=== PATIENT | female | born 1940 | race Caucasian/White ===

== ENCOUNTER 2016-10-09 14:40 | Emergency (ER) | payer OTHER ==
[~2016-10-09] VITALS: Ht 157.5 cm; Wt 59.8 kg
[2016-10-09 14:44] VITALS: TEMP 36.8; Ht 157.5 cm; Wt 59.8 kg
[2016-10-09] MEDS ORDERED: SODIUM CHLORIDE 0.9% 1000ML 1,000 ML IV STA (16:25)
[2016-10-09] MEDS ORDERED: SODIUM CHLORIDE 0.9% 1000ML 1,000 ML IV ONE (16:25)
[2016-10-09] MEDS ORDERED: OMEG10007 PO (16:54)
[2016-10-09] MEDS ORDERED: PRED1SUS3 OPL (16:54)
[2016-10-09] MEDS ORDERED: SIMV20TA2 PO (16:54)
[2016-10-09] MEDS ORDERED: KETO0.5S22 OPL (16:54)
[2016-10-09] MEDS ORDERED: DSY/150 PO (16:54)
[2016-10-09] MEDS ORDERED: ARC10 PO (16:54)
[2016-10-09] MEDS ORDERED: KETO0.5S22 OPR (16:54)
[2016-10-09] MEDS ORDERED: VENL150T33 PO (16:54)
[2016-10-09] MEDS ORDERED: PRED1SUS3 OPR (16:54)
--- NOTE | 2016-10-09 17:00 | EMERGENCY ROOM VISIT NOTE ---
History Report prepared by Carol: Nhung Oh Under the Supervision of: Dr. Augustin Nelson M.D. First contact with patient: 16:14 Chief Complaint: CONFUSION Stated Complaint: MENTAL HEALTH CHANGES, CONFUSION, SHAKING, PACING Nursing Triage Summary: Pt daughter states patient "shaking, can't focus, pacing, lip burning, crying and has mental status changes and self care is declining." "on and off" worsening since about 2 weeks ago. Dementia Cataract Surgery in August. Daughter says she's not eating and she has diarrhea. History of Present Illness The patient is a 76 year old female who presents to the Emergency Room with complaints of worsening confusion starting 2 weeks ago. The patient was diagnosed with dementia 2-3 years ago. She is here with her daughter who thinks that the patient's mental status has worsened in the past weeks. The patient's neighbor who helps take care of her noticed today that she was behaving abnormally today. She was shaking, pacing, and crying in her home. She thinks that her self care has declined recently. Her anxiety seems to be worse than normal. She has lost 10 lbs in the past 5 weeks. She is unsure if the patient is forgetting to eat or just not eating. She reports diarrhea, headache, sore throat, fatigue and dysuria. She has been picking at her skin more than normal. She denies any vomiting, chest pain, cough, SOB, fever, numbness, weakness, or abdominal pain. She denies any falls. She does not drink. She has no new medications. She is not on blood thinners. She had cataract surgery 1 month ago. She had a follow up appointment yesterday which was normal. She is on prednisone eyedrops. Source of History: patient, family Onset: 2 weeks ago Position: other (global) Quality: other (confusion) Timing: worsening Associated Symptoms: + headache, + sorethroat, + diarrhea, + urinary symptoms, + fatigue, No fevers, No cough, No chest pain, No SOB, No vomiting, No abdominal pain, No weakness, No numbness Note: Pt has been picking skin, anxious. Review of Systems See HPI for pertinent positives & negatives. A total of 10 systems reviewed and were otherwise negative. Past Medical & Surgical Medical Problems: (1) Dementia Old medical records were attempted to be reviewed but there are no old records at this hospital. Nurse's notes were reviewed and I agree with. History of dementia for several years. No history of diabetes or cardiac disease or CVA Family History Noncontributory secondary to age. Social History Smoking Status: Former Smoker Marital Status: Occupation Status: retired Current/Historical Medications Scheduled Donepezil HCl (Donepezil HCl), 10 MG PO HS Fish Oil ([place]-3), 1 CAP PO DAILY Ketorolac Tromethamine (Ophth) (Ketorolac Tromethamine), 1 DROPS OPL TID Ketorolac Tromethamine (Ophth) (Ketorolac Tromethamine), 1 DROPS OPR BID Prednisolone Acetate (Ophth) (Pred Forte 1% Oph), 1 DROPS OPL TID Prednisolone Acetate (Ophth) (Pred Forte 1% Oph), 1 DROPS OPR BID Simvastatin (Zocor), 20 MG PO QPM Trazodone HCl (Trazodone HCl), 150 MG PO HS Venlafaxine Hcl (Venlafaxine Hcl Er), 150 MG PO DAILY Allergies Coded Allergies: No Known Allergies (Unverified , 10/09/16) Physical Exam Vital Signs Date Time Temp Pulse Resp B/P (MAP) Pulse Ox O2 Delivery O2 Flow Rate FiO2 10/09/16 19:50 76 18 161/84 94 10/09/16 18:40 82 16 165/88 95 Room Air 10/09/16 16:54 67 16 188/85 95 Room Air 10/09/16 14:44 36.8 90 18 206/82 94 Room Air Physical Exam General: Non ill appearing older female in no acute distress, answers most questions appropriately. Breathing comfortably on room air. Normal speech. GCS of 14. Alert to year, person, and place, but not full date. HEENT: Normal cephalic atraumatic. Pupils are equal round and reactive to light. Extraocular movements are intact. Oropharynx is pink with moist mucous membranes. No swelling of the mouth lips or tongue. Neck: Supple with a midline trachea. No meningeal signs or stiffness, no JVD or bruits. No Stridor. Chest: Clear to auscultation bilaterally. No wheezes or rhonchi. No increased work of breathing. Heart: regular rate and rhythm. Abdomen: Soft nontender, nondistended without rebound guarding or rigidity. Extremities: No cyanosis clubbing or edema. No calf tenderness or assymetry Spine/Back. Non tender to palpation. No CVA tenderness Skin: Multiple areas where she has been picking skin to the bilateral face and upper back. Neurologic exam: Cranial nerves two through 12 are intact. Motor and sensation are intact and symmetrical throughout. No tremor. Medical Decision & Procedures ER Provider Diagnostic Interpretation: X-ray results as stated below per interpretation by me and the radiologist. Radiology results as stated below per my review and radiologist interpretation: CHEST ONE VIEW PORTABLE HISTORY: Atypical CHEST PAIN COMPARISON: None. FINDINGS: The lungs are clear. Cardiac silhouette is normal in size. No pleural effusions. No pneumothorax. Cholecystectomy. IMPRESSION: No acute process. Electronically signed by: Husam Gonzalez M.D. 10/09/2016 5:21 PM Dictated Date/Time: 10/09/2016 5:[address]AST CT DOSE: 537.48 mGy.cm HISTORY: Altered mental status. TECHNIQUE: Multiaxial CT images of the head were performed without the use of intravenous contrast. Automated exposure control was utilized for this study. A dose lowering technique was utilized adhering to the principles of ALARA. Comparison: None. Findings: The paranasal sinuses and mastoid air cells are clear. The calvarium and skull base are intact. There is no mass, hematoma, midline shift, acute infarct. White matter hypodensity is nonspecific but suggestive of microvascular ischemic change. The ventricles and sulci are within normal limits. Impression: Presumed mild microvascular ischemic change. No acute intracranial abnormality. Electronically signed by: Husam Gonzalez M.D. 10/09/2016 5:17 PM Dictated Date/Time: 10/09/2016 5:11 PM Laboratory Results 10/09/16 16:38 Red Blood Count 4.76, Mean Corpuscular Volume 93.5, Mean Corpuscular Hemoglobin 30.5, Mean Corpuscular Hemoglobin Concent 32.6, Mean Platelet Volume 12.6, Neutrophils (%) (Auto) 69.5, Lymphocytes (%) (Auto) 19.8, Monocytes (%) (Auto) 8.6, Eosinophils (%) (Auto) 1.3, Basophils (%) (Auto) 0.7, Neutrophils # (Auto) 5.78, Lymphocytes # (Auto) 1.65, Monocytes # (Auto) 0.72, Eosinophils # (Auto) 0.11, Basophils # (Auto) 0.06 10/09/16 16:38 Test 10/09/16 16:15 10/09/16 16:38 10/09/16 16:49 Urine Color YELLOW Urine Appearance CLEAR (CLEAR) Urine pH 7.5 (4.5-7.5) Urine Specific [place] 1.013 (1.000-1.030) Urine Protein NEG (NEG) Urine Glucose (UA) NEG (NEG) Urine Ketones TRACE (NEG) Urine Occult Blood NEG (NEG) Urine Nitrite NEG (NEG) Urine Bilirubin NEG (NEG) Urine Urobilinogen NEG (NEG) Urine Leukocyte Esterase NEG (NEG) White Blood Count 8.33 K/uL (4.8-10.8) Red Blood Count 4.76 M/uL (4.2-5.4) Hemoglobin 14.5 g/dL (12.0-16.0) Hematocrit 44.5 % (37-47) Mean Corpuscular Volume 93.5 fL (80-100) Mean Corpuscular Hemoglobin 30.5 pg (25-34) Mean Corpuscular Hemoglobin Concent 32.6 g/dl (32-36) Platelet Count 188 K/uL (130-400) Mean Platelet Volume 12.6 fL (7.4-10.4) Neutrophils (%) (Auto) 69.5 % Lymphocytes (%) (Auto) 19.8 % Monocytes (%) (Auto) 8.6 % Eosinophils (%) (Auto) 1.3 % Basophils (%) (Auto) 0.7 % Neutrophils # (Auto) 5.78 K/uL (1.4-6.5) Lymphocytes # (Auto) 1.65 K/uL (1.2-3.4) Monocytes # (Auto) 0.72 K/uL (0.11-0.59) Eosinophils # (Auto) 0.11 K/uL (0-0.5) Basophils # (Auto) 0.06 K/uL (0-0.2) RDW Standard Deviation 43.5 fL (36.4-46.3) RDW Coefficient of Variation 12.7 % (11.5-14.5) Immature Granulocyte % (Auto) 0.1 % Immature Granulocyte # (Auto) 0.01 K/uL (0.00-0.02) Anion Gap 7.0 mmol/L (3-11) Est Creatinine Clear Calc Drug Dose 53.9 ml/min Estimated GFR () 97.1 Estimated GFR (Non- 83.8 BUN/Creatinine Ratio 9.8 (10-20) Calcium Level 9.5 mg/dl (8.5-10.1) Total Bilirubin 0.5 mg/dl (0.2-1) Direct Bilirubin 0.1 mg/dl (0-0.2) Aspartate Amino Transf (AST/SGOT) 26 U/L (15-37) Alanine Aminotransferase (ALT/SGPT) 29 U/L (12-78) Alkaline Phosphatase 87 U/L (45-117) Total Protein 7.5 gm/dl (6.4-8.2) Albumin 3.8 gm/dl (3.4-5.0) Lipase 302 U/L (73-393) Thyroid Stimulating Hormone (TSH) 0.618 uIu/ml (0.300-4.500) Bedside Troponin I < 0.030 ng/ml (0-0.045) Laboratory studies as stated above per my review. Medications Administered Medications (Trade) Dose Ordered Sig/Mati Route Start Time Stop Time Status Last Admin Dose Admin Sodium Chloride 1,000 ml @ 999 mls/hr Q1H1M STAT IV 10/09/16 16:25 10/09/16 17:25 DC 10/09/16 16:25 999 MLS/HR ECG Indication: altered mental status Rate (beats per minute): 64 Rhythm: normal sinus Findings: no acute ischemic change, no ectopy Comparison ECG Date: no prior available ED Course 1617: Past medical records reviewed. The patient was evaluated in room C4, and a complete history and physical examination were performed. 1625: NSS 1000 ml @ 150 mls/hr IV, NSS 1000 ml @ 999 mls/hr IV. 1709: I reevaluated the patient. She is resting comfortably. She has just returned from [place]. 180: I reevaluated the patient. She is resting comfortably. We are waiting on her daughter to return. 1830: I reevaluated the patient. I had a long discussion with her family. The psych liaison will evaluate the patient. 0: The patient has been seen by the caser up. She will stay with her family over the weekend and follow up on Wednesday and set up home care. 194: Upon reevaluation, the patient is resting comfortably. I discussed the results and treatment plan with her family. They verbalized agreement of the treatment plan. The patient was discharged home. Medical Decision Differentials include, but are not limited to; UTI, intracranial process, dementia, electrolyte or metabolic abnormality, depression, cardiac disease. This patient has a history of dementia over several years according to the daughter, she's been getting worse over several weeks. She's been more forgetful and anxious. She's had no fever or fall or trauma. She's been very anxious at times as well. She looks well on exam. She has a [place] Coma Score 14 and does know the year but not the date otherwise. She is nontoxic and non-lethargic appearing. IV access was established. EKG was obtained. Urinalysis and urine culture was obtained. CAT scan of her head was obtained multiple blood testing was obtained. She was reassessed frequently. She has no white count or fever to suggest infection. Urinalysis does not suggest UTI with a culture pending. CAT scan of her head was unremarkable and shows no acute findings she does have a nonfocal neurologic exam and nothing to suggest a stroke based on her exam. EKG does not suggest acute coronary syndrome or arrhythmia. She has nothing to suggest acute thyroid abnormalities. I did also have Thong, our psychiatric caser up, talked to the family and he is going to arrange a home visit on Wednesday they will call her. The family against a with her over the weekend. They will return if: worsening of symptoms, any new problems or concerns. They're happy with the plan and she was discharged to home. Medication Reconcilliation Current Medication List: was personally reviewed by me Blood Pressure Screening Patient's blood pressure: Elevated blood pressure Blood pressure disposition: Elevated BP felt to be situational Impression Primary Impression: Altered mental status Additional Impression: Anxiety Scribe Attestation The scribe's documentation has been prepared under my direction and personally reviewed by me in its entirety. I confirm that the note above accurately reflects all work, treatment, procedures, and medical decision making performed by me. Departure Information Dispostion Home / Self-Care Referrals Cristina Diaz M.D. (PCP) Forms HOME CARE DOCUMENTATION FORM, IMPORTANT VISIT INFORMATION, WORK / SCHOOL INSTRUCTIONS Patient Instructions My [facility] [place] Additional Instructions Rest Drink plenty of fluids Stay with your family over the weekend Follow-up with [facility]-They will call you on Wednesday. Follow-up with your doctor on Wednesday for recheck Return to ER over the weekend if: Worsening of symptoms, fever or chills, any new problems or concerns. Problem Qualifiers
[2016-10-09 17:04] LABS: URINE APPEARANCE CLEAR (CLEAR); URINE BILIRUBIN NEG (NEG); URINE COLOR YELLOW; URINE NITRITE NEG (NEG); URINE PH 7.5 (4.5-7.5); URINE SPECIFIC GRAVITY 1.013 (1.000-1.030); UROBILINOGEN NEG (NEG)
--- NOTE | 2016-10-09 17:18 | DIAGNOSTIC IMAGING REPORT ---
HEAD CT NONCONTRAST CT DOSE: 537.48 mGy.cm HISTORY: Altered mental status. TECHNIQUE: Multiaxial CT images of the head were performed without the use of intravenous contrast. Automated exposure control was utilized for this study. A dose lowering technique was utilized adhering to the principles of ALARA. Comparison: None. Findings: The paranasal sinuses and mastoid air cells are clear. The calvarium and skull base are intact. There is no mass, hematoma, midline shift, acute infarct. White matter hypodensity is nonspecific but suggestive of microvascular ischemic change. The ventricles and sulci are within normal limits. Impression: Presumed mild microvascular ischemic change. No acute intracranial abnormality. Electronically signed by: Husam Gonzalez M.D. 10/09/2016 5:17 PM Dictated Date/Time: 10/09/2016 5:11 PM
[2016-10-09 17:22] LABS: BASO % 0.7 %; BASO ABS # 0.06 K/uL (0-0.2); COMPLETE YES; EOS % 1.3 %; HEMATOCRIT 44.5 % (37-47); IG% 0.1 %; LYMPH % 19.8 %; LYMPH ABS # 1.65 K/uL (1.2-3.4); MEAN CELL VOLUME 93.5 fL (80-100); MEAN CORPUSCULAR HEMOGLOBIN 30.5 pg (25-34); MEAN CORPUSCULAR HGB CONC 32.6 g/dl (32-36); MEAN PLATELET VOLUME 12.6 fL (7.4-10.4); MONO % 8.6 %; NEUT % 69.5 %; PLATELET COUNT 188 K/uL (130-400); RED BLOOD COUNT 4.76 M/uL (4.2-5.4); WHITE BLOOD COUNT 8.33 K/uL (4.8-10.8)
--- NOTE | 2016-10-09 17:22 | DIAGNOSTIC IMAGING REPORT ---
CHEST ONE VIEW PORTABLE HISTORY: Atypical CHEST PAIN COMPARISON: None. FINDINGS: The lungs are clear. Cardiac silhouette is normal in size. No pleural effusions. No pneumothorax. Cholecystectomy. IMPRESSION: No acute process. Electronically signed by: Husam Gonzalez M.D. 10/09/2016 5:21 PM Dictated Date/Time: 10/09/2016 5:20 PM
[2016-10-09 17:28] LABS: MANUAL MICROSCOPIC REQUIRED? NO; REVIEW REQ? NO
[2016-10-09 17:51] LABS: BUN/CREATININE RATIO 9.8 (10-20); CALCIUM 9.5 mg/dl (8.5-10.1); CREATININE 0.68 mg/dl (0.60-1.20); POTASSIUM 3.6 mmol/L (3.5-5.1)
[2016-10-09 18:02] LABS: THYROID STIMULATING HORMONE 0.618 uIu/ml (0.300-4.500)
[2016-10-09 19:50] VITALS: BP 161/84; PULSE 76; O2SAT 94
== END 2016-10-09 19:51 | disposition home or self-care (01) ==
LOC: C.EDB 14:42 → C.EDC 19:51
DX: R41.82 Altered mental status, unspecified (principal); F41.9 Anxiety disorder, unspecified; Z98.49 Cataract extraction status, unspecified eye; Z87.891 Personal history of nicotine dependence; Z79.899 Other long term (current) drug therapy

== ENCOUNTER → 2017-02-05 | Outpatient (CLI) | payer OTHER ==
[~2017-02-05] MED LIST: ARC10 PO; DSY/150 PO; KETO0.5S22 OPL; KETO0.5S22 OPR; OMEG10007 PO; PRED1SUS3 OPL; PRED1SUS3 OPR; SIMV20TA2 PO; VENL150T33 PO
[2017-02-05 12:46] LABS: BASO % 1.7 %; BASO ABS # 0.13 K/uL (0-0.2); COMPLETE YES; EOS % 5.6 %; HEMATOCRIT 44.8 % (37-47); IG% 0.1 %; MEAN CELL VOLUME 97.6 fL (80-100); MEAN CORPUSCULAR HEMOGLOBIN 32.5 pg (25-34); MEAN CORPUSCULAR HGB CONC 33.3 g/dl (32-36); MEAN PLATELET VOLUME 11.7 fL (7.4-10.4); NEUT % 60.6 %; PLATELET COUNT 197 K/uL (130-400); RED BLOOD COUNT 4.59 M/uL (4.2-5.4); WHITE BLOOD COUNT 7.51 K/uL (4.8-10.8)
[2017-02-05 13:15] LABS: ALT/SGPT 22 U/L (12-78); AST/SGOT 20 U/L (15-37); BLOOD UREA NITROGEN 12 mg/dl (7-18); BUN/CREATININE RATIO 16.2 (10-20); CALCIUM 9.4 mg/dl (8.5-10.1); CARBON DIOXIDE 30 mmol/L (21-32); CHLORIDE 102 mmol/L (98-107); CHOLESTEROL 174 mg/dl (0-200); CREATININE 0.75 mg/dl (0.60-1.20); GLUCOSE 105 mg/dl (70-99); POTASSIUM 4.1 mmol/L (3.5-5.1); SODIUM 137 mmol/L (136-145)
[2017-02-05 13:18] LABS: ALB/GLOB RATIO 1.1 (0.9-2); ALKALINE PHOSPHATASE 78 U/L (45-117); CHOLESTEROL/HDL RATIO 1.8; HDL CHOLESTEROL 98 mg/dl; LDL CHOLESTEROL CALCULATED 55 mg/dl; TRIGLYCERIDES 105 mg/dl (0-150); VERY LOW DENSITY LIPOPROT CALC 21 mg/dl
== END | disposition home or self-care (01) ==
LOC: C.LABMFLN 09:42
PROVIDERS: ATTEND Family Medicine
DX: F03.90 Unspecified dementia, unspecified severity, without behavioral disturbance, psychotic disturbance, mood disturbance, and anxiety (principal); E78.5 Hyperlipidemia, unspecified

== ENCOUNTER 2018-05-09 07:50 | Inpatient (IN) ==
--- NOTE | 2018-05-05 08:36 | Anesthesiology Consultation ---
Date of Service May 05, 2018 Assessment & Plan Chart Review Chart Review: Acceptable Risk for Surgery (Pending EKG that is being sent and need to be reviewed) and Patient NOT seen in Pre Admission Testing History Surgery Operation Date: 05/09/18 13:00 Proposed Procedures p Left Mastectomy with [place] Lymph Node Biopsy - Lito Porras MD, FACS Height/Weight Height: 1.57 m Weight: 60.781 kg Allergies Allergy/AdvReac Type Severity Reaction Status Date / Time Sulfa (Sulfonamide Allergy Unknown Unknown Verified 05/04/18 16:23 Antibiotics) Medications Home Medications Medication Instructions Recorded Confirmed Last Taken Ointment 1 dose TOPICAL UD PRN 05/04/18 05/04/18 Unknown chlorpromazine 10 mg PO QAM 05/04/18 05/04/18 05/04/18 memantine 10 mg PO BID 05/04/18 05/04/18 05/04/18 omega [id number]-fish oil [Fish Oil] 1 cap PO DAILY 05/04/18 05/04/18 Unknown simvastatin 20 mg PO PM 05/04/18 05/04/18 05/03/18 trazodone 150 mg PO HS 05/04/18 05/04/18 05/03/18 venlafaxine 150 mg PO QAM 05/04/18 05/04/18 05/04/18 donepezil 10 mg PO DAILY 05/05/18 05/05/18 Unknown Past Medical History Medical History Dementia (Chronic) Anxiety and depression Breast cancer History of anesthesia reaction SLOW TO WAKE UP History of anesthesia reaction WITH FIRST CATARACT PROCEDURE - TOOK LONG TIME TO COME OUT OF ANESTHESIA, MADE DIMENTIA WORSE (pt was given 4mg of versed, 50mcg of fentanyl and 10mg of ketamine) WITH SECOND CATARACT - CAME OUT BETTER, DID NOT WORSEN DIMENTIA CATARACTS DONE [facility] ( INFORMATION WAS TO BE FAXED ON APR 15, 2018 TO [facility]) History of cervical cancer History of high cholesterol Past Surgical History Surgical History History of bilateral cataract extraction 2 PROCEDURES FOR History of colonoscopy History of hernia surgery History of laparoscopic cholecystectomy Social History Smoking Status: Former smoker tobacco type: cigarettes Do You Dip or Chew Tobacco: No Smoking End Date: QUIT AGE 48 Hx Alcohol Use: No Hx Substance Use: No substance use type: does not use Exercise / Class Metabolic Activity III < 4 Walking/Shop/Light housework Testing Laboratory Results Laboratory Tests 05/04/18 05/04/18 09:19 09:19 WBC 6.36 Hgb 14.4 Hct 44.1 Plt Count 237 Sodium 140 Potassium 4.1 Chloride 106 Carbon Dioxide 32 BUN 14 Creatinine 0.70 Glucose 98
[~2018-05-09 07:50] MED LIST changes: -ARC10 PO; -DSY/150 PO; -KETO0.5S22 OPL; -KETO0.5S22 OPR; +LR 15ML/HR IV SCH; -OMEG10007 PO; -PRED1SUS3 OPL; -PRED1SUS3 OPR; -SIMV20TA2 PO; -VENL150T33 PO
[2018-05-09] MEDS ORDERED: PROPOFOL IV EMULSION 10 MG/ML 20 ML VIAL IV ONE (08:23)
[2018-05-09] MEDS ORDERED: MIDAZOLAM HCL 1 MG/ML 2ML VIAL ONE (08:23)
[2018-05-09] MEDS ORDERED: fentaNYL citrate 100 MCG/2 ML VIAL ONE (08:23)
[2018-05-09] MEDS ORDERED: LIDOCAINE HCL 2% 2 ML VIAL/AMP(20MG/ML) INFIL ONE (08:23)
[2018-05-09] MEDS ORDERED: ONDANSETRON INJ 2 MG/ML 2 ML VIAL ONE (08:23)
[2018-05-09] MEDS ORDERED: DEXAMETHASONE SOD INJ 4 MG/ML VIAL ONE (08:23)
[2018-05-09] MEDS ORDERED: ONDANSETRON INJ 2 MG/ML 2 ML VIAL IV PRN ×2 (08:45→12:37)
[2018-05-09] MEDS ORDERED: ePHEDrine sulfate 50 MG/ML AMP IV PRN (08:45)
[2018-05-09] MEDS ORDERED: PHENYLEPHRINE 100MCG/ML 5ML SYR IV PRN (08:45)
[2018-05-09] MEDS ORDERED: ATROPINE SULFATE 0.1 MG/ML 10ML SYR IV PRN (08:45)
[2018-05-09] MEDS ORDERED: ISOSULFAN BLUE 10 MG/ML VIAL 5 ML ONE (09:11)
[2018-05-09] MEDS ORDERED: BUPIVACAINE 0.5 % 5 MG/1 ML MPF 30ML VIAL ONE (09:11)
[2018-05-09] MEDS ORDERED: METHYLENE BLUE 0.5% 10 ML VIAL ONE (09:11)
--- NOTE | 2018-05-09 09:33 | Nuclear Medicine Report ---
LYMPHOSCINTIGRAPHY CLINICAL HISTORY: Left breast cancer. PROCEDURE: Using standard sterile technique, 4 intradermal periareolar and one deep injection of 0.5 mCi of Lymphoseek was placed in the left breast. The patient tolerated the procedure well. There were no immediate complications. The patient was subsequently transported to the surgical suite. No imagi ng was obtained at the referring physician's request. IMPRESSION: Injection of 0.5 mCi of Lymphoseek in the left breast. Electronically signed by: Barry Umanzor M.D. 05/09/2018 9:32 AM
[2018-05-09] MEDS: CEFAZOLIN 2000MG 2,000 MG/15 ML SYR IV SCH ×2 (09:48→16:39)
[2018-05-09] MEDS ORDERED: ePHEDrine sulfate 50 MG/ML SYR ONE (10:17)
[2018-05-09] MEDS ORDERED: GLYCOPYRROLATE 0.2 MG/ML VIAL ONE (10:36)
[2018-05-09] MEDS ORDERED: PHENYLEPHRINE 100MCG/ML 5ML SYR ONE (10:36)
--- NOTE | 2018-05-09 10:55 | Operative Report ---
Post Operative Report Pre & Post Diagnosis Operation Date: 05/09/18 10:40 Pre-Op Diagnosis: Left Breast Cancer Post-Op Diagnosis: Left Breast Cancer Procedure Operation Date: 05/09/18 10:40 Actual Procedures p Left Mastectomy with [place] Lymph Node Biopsy(Left) - Lito Porras MD, FACS Surgeon Lito Porras MD, FACS Drying Room Attendant Joana Cast Estimated Blood Loss 10 Findings Consistent with Post-Op Diagnosis Specimens Lt breast tissue and Lt axill LN- sent node Description of Procedure see dictation I attest to the content of the Intraoperative Record and any orders documented therein. Any exceptions are noted below.
[2018-05-09] MEDS ORDERED: ACETAMINOPHEN 1,000 MG/100 ML VIAL IV ONE (11:15)
[2018-05-09] MEDS: fentaNYL citrate 100 MCG/2 ML VIAL IV PRN ×2 (11:48→11:53)
--- NOTE | 2018-05-09 11:55 | Anesthesiology Progress Note ---
Date of Service May 09, 2018 Anesthesia Post Procedure Vital Signs Vital Signs: Temp Pulse Pulse Resp BP Pulse Ox 05/09/18 11:45 78 16 102/49 L 92 05/09/18 11:35 83 16 133/59 L 100 05/09/18 11:25 82 16 140/64 100 05/09/18 11:17 36.0 C L 85 16 145/74 H 100 05/09/18 09:00 36.5 C 83 18 158/79 H 94
[2018-05-09] MEDS ORDERED: HYDROCODONE/ACETAMOPHEN 5/325MG TAB PO PRN ×2 (12:37)
[2018-05-09] MEDS ORDERED: MoRPHine SULFATE 2 MG/ML CARP IV PRN ×2 (12:37)
[2018-05-09] MEDS ORDERED: ACETAMINOPHEN 325 MG TAB PO PRN (12:37)
[2018-05-09] MEDS ORDERED: PROMETHAZINE HCL 12.5 MG in SODIUM CHLORIDE 0.9% 50 ML IV PRN (12:37)
--- NOTE | 2018-05-09 13:00 | Operative Report ---
DATE OF OPERATION: 05/09/2018 NAME OF OPERATION: Left mastectomy with sentinel lymph node biopsy. PREOPERATIVE DIAGNOSIS: Left breast cancer. POSTOPERATIVE DIAGNOSIS: Left breast cancer. STAFF SURGEON: Lito Porras MD HUMAN CAPITAL MANAGER: Mariusz Cast PA-C ANESTHESIA: General. DESCRIPTION OF PROCEDURE: The patient was brought in the operating room and placed on the operating table in supine position. Her left chest and axilla were prepped and draped in usual fashion. She had undergone injection for sentinel lymph node biopsy. My escrow assistant, Abdelrahman helped with prepping, draping, excision of the breast and axillary tissue and closure of the wounds. Initially, incision was made in the left axilla, using 0.5% plain Marcaine to anesthetize the tissue carrying dissection down deeply finding a small lymph node which was sent for frozen section and found to be negative. During the frozen section, we did perform mastectomy making an elliptical incision around the nipple areolar complex in the left side from sternum to the axilla and then constructing superior and inferior breast flaps, dissecting the breast tissue away from the subcutaneous tissue down to the pectoralis major muscle and then dissecting the breast tissue away from the pectoralis muscle. Vessels were oversewn using 2-0 plain suture and 2-0 silk ties. The site was irrigated. A 15 round Bj-Jean drain placed into the wound, secured to the skin using 3-0 nylon suture and then the subcutaneous tissue reapproximated using 3-0 Vicryl suture in the chest. Deep tissue in the left axilla closed using 2-0 plain and then the skin in the axilla closed using 4-0 nylon suture. Skin in the chest wall, breast incision was closed using subcuticular 4-0 Monocryl with Steri-Strips. Dressings applied and the patient transferred to the recovery room in stable condition. I attest to the content of the Intraoperative Record and any orders documented therein. Any exception s are noted below.
[2018-05-09] MEDS ORDERED: SODIUM CHLORIDE 0.9% 1000ML 1,000 ML IV SCH (13:30)
[2018-05-09 14:39] LABS: Creatinine Clr Calc Pharmacy 49.6 ml/min; Est GFR (African American) 82.5; Est GFR (Non-African American) 71.2
--- NOTE | 2018-05-09 16:28 | Hospitalist Consultation ---
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 - Primary care per surgery team. - Monitor CBC on 05/10 to evaluate for acute blood loss. (2) Status post left mastectomy: - As noted above. (3) Dementia: - Continue Memantine 10 mg BID and Aricept 10 mg qhs. (4) Depression with anxiety: - Continue Effexor 150 mg qhs, Chlorpromazine 10 mg qAM and Trazodone 150 mg qhs. (5) Hyperlipidemia: - Continue Simvastatin 20 mg qPM as prescribed. (6) DVT prophylaxis: - Hold in setting of recent procedure. Dispo: Pt. is doing well post operatively; reviewed medication list with the patient and her daughter. Will sign off, please call with any questions. Supervising Physician Co-Signing Physician Notes Attending Attestation & Consult Note: Pt seen/examined, chart reviewed, consult d/w [place]. I agree w/ the esqueda components of her consult documentation. 77yo female w/ h/o dementia and PEs who presented for scheduled mastectomy of the left breast by Dr. Porras. I saw the pt post-op on the surgery floor - was pleasantly confused due to her dementia, but was not combative. She denied any chest pain or dyspnea. She had a sitter in the room. PMH, PSH, allergies, meds, sochx, famhx, ros - reviewed VSS, no fever gen - NAD, pleasantly confused neck - no JVD mouth - MMM heart - RRR, s1 s2 lungs - CTA b/l abd - soft NT ND BS+ chest - dressings intact, drain in place ext - no edema A/P: s/p left mastectomy medicine will cont to follow plans per Ms. Cruzito Ramos MD History of Present Illness Reason for Consultation: Medical Management Attending Physician: Lito Porras MD, FACS History of Present Illness Ms. Field is a 77 year old female with past medical history of dementia, anxiety/depression, cervical cancer, hyperlipidemia and newly diagnosed breast cancer who presented for a planned left mastectomy and sentinel lymph node biopsy. Pt. is doing well post operatively, complains of mild pain. Denies chest pain, SOB, LE edema, N/V, diarrhea or constipation. Discussed medication list with patient and her daughter who was present at bedside. Allergies Allergy/AdvReac Type Severity Reaction Status Date / Time Sulfa (Sulfonamide Allergy Unknown Unknown Verified 05/13/18 19:51 Antibiotics) risedronate sodium AdvReac Mild reflux Verified 05/13/18 19:51 [From Actonel] Home Medications Home Medications Medication Instructions Recorded Confirmed Type Triple Antibiotic 1 applic TOPICAL BID PRN 05/04/18 05/09/18 History chlorpromazine 10 mg PO QAM 05/04/18 05/09/18 History memantine 10 mg PO BID 05/04/18 05/04/18 History simvastatin 20 mg PO PM 05/04/18 05/04/18 History trazodone 150 mg PO HS 05/04/18 05/04/18 History venlafaxine 150 mg PO HS 05/04/18 05/04/18 History donepezil 10 mg PO DAILY 05/05/18 05/09/18 History cephalexin [Keflex] 500 mg PO TID #15 cap 05/11/18 Rx hydrocodone-acetaminophen [Hopkins] 1 - 2 tab PO Q6H #30 tab 05/11/18 Rx apixaban [Eliquis] 5 mg PO BID #74 ea 05/14/18 Rx Patient History Medical History Dementia (Chronic) increases drastically with anesthesia especially the combination used during her first cataract surgery but not with the second cataract surgery Anxiety and depression Breast cancer History of cervical cancer History of high cholesterol Pulmonary emboli Surgical History History of anesthesia reaction SLOW TO WAKE UP History of anesthesia reaction WITH FIRST CATARACT PROCEDURE - TOOK LONG TIME TO COME OUT OF ANESTHESIA, MADE DIMENTIA WORSE (pt was given 4mg of versed, 50mcg of fentanyl and 10mg of ketamine) WITH SECOND CATARACT - CAME OUT BETTER, DID NOT WORSEN DIMENTIA CATARACTS DONE [facility]YE [facility] ( INFORMATION WAS TO BE FAXED ON APR 15, 2018 TO [facility] GENERAL SURGERY FROM EYE [facility]INIC) History of bilateral cataract extraction 2 PROCEDURES FOR History of colonoscopy History of hernia surgery History of laparoscopic cholecystectomy S/P left mastectomy Family History Mother Brain tumor Social History Preferred Language: Estonian Beliefs That Will Affect Care: None marital status: / Current Living Situation: Alone Other Information That Helps Us Care for You: No Feels Safe at Home: Yes Safety Concerns: Afraid for Self Smoking Status: Former smoker Hx Alcohol Use: No Hx Substance Use: No Review of Systems 12 point R.O.S. negative unless specified above. Constitutional: no fever, no chills, no fatigue, no weakness and no anorexia Respiratory: no cough and no dyspnea Cardiovascular: no chest pain, no palpitations, no syncope and no edema Gastrointestinal: no abdominal pain, no nausea, no vomiting, no constipation and no diarrhea/loose stools Genitourinary (Female): no dysuria, no difficulty urinating and no urinary frequency Musculoskeletal: no back pain, no joint pain and no myalgia Neurologic: + memory loss Allergy / Immunological: no rash Physical Exam Vital Signs (Past 24 Hours): Last Vital Signs Temp 36.7 C 05/09/18 15:23 Pulse 84 05/09/18 15:23 Resp 20 05/09/18 15:23 BP 158/79 H 05/09/18 15:23 Pulse Ox 94 05/09/18 15:23 Physical Exam: General: Resting comfortably in no apparent distress; A&OX3 HEENT: NC/AT; PERRLA with EOMI; [place] conjunctiva, MMM. Neck: Supple and nontender Cardiac: RRR w/o murmurs, gallops or rubs Lungs: CTA bilaterally; No rhonchi, wheezing, or rales Abdomen: Bowel normoactive X 4; Nontender to palpation Extremities: Warm. No edema present Neuro: No focal weakness Skin: Incision site with dressing in place, did not visualize. Results & Data Laboratory Results 05/09/18 Range/Units 13:51 Creatinine 0.79 (0.6-1.2) mg/dl Est Cr Clr Drug Dosing 49.6 ml/min Est GFR ( Amer) 82.5 Est GFR (Non-Af Amer) 71.2
[2018-05-09] MEDS: CEFAZOLIN 1000MG 1,000 MG/7.5 ML SYR IV SCH (19:44)
[2018-05-09] MEDS: SIMVASTATIN 20 MG TAB PO SCH (19:51)
[2018-05-09] MEDS: MEMANTINE HCL 10 MG TAB PO SCH (19:51)
[2018-05-09] MEDS: TRAZODONE HCL 50 MG TAB PO SCH (19:51)
[2018-05-09] MEDS: DONEPEZIL HCL 10 MG TAB PO SCH (19:51)
[2018-05-09] MEDS: VENLAFAXINE HCL XR 150 MG CAPXR PO SCH (19:51)
[2018-05-10] MEDS: CEFAZOLIN 1000MG 1,000 MG/7.5 ML SYR IV SCH ×3 (02:50→17:44)
--- NOTE | 2018-05-10 07:15 | Progress Note ---
Date of Service May 10, 2018 Assessment & Plan (1) Status post left mastectomy: doing well- supportive care today assess d/c situation and discuss with daughter- possible d/c 1-2 days daughter concerned about care at home Subjective awake , alert- comfortable, cooperative last pm Physical Exam Vital Signs (Past 24 Hours): Last Vital Signs Temp 37.4 C 05/10/18 02:42 Pulse 72 05/10/18 02:42 Resp 15 05/10/18 02:42 BP 150/79 H 05/10/18 02:42 Pulse Ox 92 05/10/18 02:42 dressing intact, dry, drain min
[2018-05-10 08:34] LABS: Basophils # (auto) 0.03 K/uL (0-0.2); Basophils % (auto) 0.2 %; Eosinophils # (auto) 0.07 K/uL (0-0.5); Eosinophils % (auto) 0.4 %; Immature Granulocytes # (auto) 0.04 K/uL (0.00-0.02); Immature Granulocytes % (auto) 0.2 %; Lymphocytes # (auto) 1.69 K/uL (1.2-3.4); Lymphocytes % (auto) 10.5 %; Mean Corpuscular Hgb Conc 33.3 g/dL (32-36); Mean Corpuscular Volume 96.3 fL (80-100); Mean Platelet Volume 11.6 fL (7.4-10.4); Monocytes # (auto) 1.27 K/uL (0.11-0.59); Monocytes % (auto) 7.9 %; Neutrophils # (auto) 12.92 K/uL (1.4-6.5); Neutrophils % (auto) 80.8 %; Platelet Count 215 K/uL (130-400); RDW Coefficient of Variation 13.1 % (11.5-14.5); RDW Standard Deviation 46.2 fL (36.4-46.3); Red Blood Count 4.05 M/uL (4.2-5.4); White Blood Count 16.02 K/uL (4.8-10.8)
[2018-05-10] MEDS: CHLORPROMAZINE HCL 10 MG TABLET PO SCH (08:39)
--- NOTE | 2018-05-10 08:39 | Anesthesiology Progress Note ---
Date of Service May 10, 2018 Anesthesia Post Procedure Vital Signs Vital Signs: Temp Pulse Pulse Resp BP Pulse Ox 05/10/18 07:16 37.1 C 70 18 151/84 H 92 05/10/18 02:42 37.4 C 72 15 150/79 H 92 05/09/18 23:09 37.4 C 78 14 127/73 90 05/09/18 19:06 37.3 C 77 16 138/75 91 05/09/18 15:23 36.7 C 84 20 158/79 H 94 05/09/18 14:23 36.7 C 87 16 139/79 93 05/09/18 13:25 36.8 C 86 16 158/78 H 98 05/09/18 12:51 36.7 C 83 16 157/77 H 97 05/09/18 11:55 80 16 112/55 L 92 05/09/18 11:45 78 16 102/49 L 92 05/09/18 11:35 83 16 133/59 L 100 05/09/18 11:25 82 16 140/64 100 05/09/18 11:17 36.0 C L 85 16 145/74 H 100 05/09/18 09:00 36.5 C 83 18 158/79 H 94 Pain Intensity Left Chest: Pain Intensity: 0 Notes Mental Status: alert / awake / arousable and participated in evaluation Nausea / Vomiting: adequately controlled Pain: adequately controlled Airway Patency, RR, SpO2: stable & adequate BP & HR: stable & adequate Hydration State: stable & adequate
[2018-05-10] MEDS: MEMANTINE HCL 10 MG TAB PO SCH ×2 (08:40→20:24)
[2018-05-10] MEDS ORDERED: VENLAFAXINE HCL XR 150 MG CAPXR PO SCH (09:00)
[2018-05-10] MEDS ORDERED: DONEPEZIL HCL 10 MG TAB PO SCH (09:00)
[2018-05-10 09:07] LABS: Albumin Level 3.3 gm/dl (3.4-5.0); BUN Creatinine Ratio 18.2 (10-20); Calcium 8.6 mg/dl (8.5-10.1); Creatinine Clr Calc Pharmacy 61.2 ml/min; Est GFR (African American) 98.4; Est GFR (Non-African American) 84.9; Potassium 3.7 mmol/L (3.5-5.1)
[2018-05-10 09:10] LABS: Bilirubin,Total 0.2 mg/dl (0.2-1); Globulin 3.5 gm/dl (2.5-4.0); Phosphorus 2.8 mg/dl (2.5-4.9); Total Protein 6.8 gm/dl (6.4-8.2)
[2018-05-10] MEDS: DONEPEZIL HCL 10 MG TAB PO SCH (20:24)
[2018-05-10] MEDS: VENLAFAXINE HCL XR 150 MG CAPXR PO SCH (20:24)
[2018-05-10] MEDS: SIMVASTATIN 20 MG TAB PO SCH (20:24)
[2018-05-10] MEDS: TRAZODONE HCL 50 MG TAB PO SCH (20:24)
[2018-05-11] MEDS: CEFAZOLIN 1000MG 1,000 MG/7.5 ML SYR IV SCH ×2 (02:19→09:38)
--- NOTE | 2018-05-11 06:38 | Progress Note ---
Date of Service May 11, 2018 Assessment & Plan (1) Status post left mastectomy: doing well- possible d/c soon if visiting nurse can be arranged and daughter agreeable- will need wound and drain care Subjective very cooperative and stable min pain, drain output expected Physical Exam Vital Signs (Past 24 Hours): Last Vital Signs Temp 36.9 C 05/10/18 23:32 Pulse 77 05/10/18 23:32 Resp 15 05/10/18 23:32 BP 179/79 H 05/10/18 23:32 Pulse Ox 94 05/10/18 23:32 comfortable and no acute chgs
[2018-05-11] MEDS: CHLORPROMAZINE HCL 10 MG TABLET PO SCH (09:36)
[2018-05-11] MEDS: MEMANTINE HCL 10 MG TAB PO SCH (09:36)
--- NOTE | 2018-05-11 13:36 | Discharge Summary ---
PRINCIPAL DIAGNOSIS: Left breast cancer. PROCEDURES: The patient underwent left mastectomy. HISTORY OF PRESENT ILLNESS AND HOSPITAL COURSE: The patient is a 77-year-old female who was brought into the hospital on 05/09/2018 for elective left mastectomy. She tolerated the procedure very well and has done well since then, was felt stable for discharge back to her home with home nursing visits and a drain in place. She is to be discharged today on 05/11/2018 to be followed in surgical clinic next week.
== END 2018-05-11 11:31 | disposition home health service (06) | DRG 581 ==
LOC: ASU 07:50 → 3N 10:55
DX: Z79.899 Other long term (current) drug therapy; F41.8 Other specified anxiety disorders; Z87.891 Personal history of nicotine dependence; Z80.9 Family history of malignant neoplasm, unspecified; Z88.2 Allergy status to sulfonamides; E78.5 Hyperlipidemia, unspecified; Z17.1 Estrogen receptor negative status [ER-]; Z88.8 Allergy status to other drugs, medicaments and biological substances; Z85.41 Personal history of malignant neoplasm of cervix uteri; F03.90 Unspecified dementia, unspecified severity, without behavioral disturbance, psychotic disturbance, mood disturbance, and anxiety; D05.12 Intraductal carcinoma in situ of left breast

== ENCOUNTER 2018-05-13 15:46 | Observation (INO) ==
[2018-05-13] MEDS ORDERED: SODIUM CHLORIDE 0.9% 500 ML IV STA (16:47)
[2018-05-13] MEDS ORDERED: ALBUT/IPRATROP 3MG/0.5MG NEB 3 ML VIAL INH STA (16:47)
[2018-05-13 17:22] LABS: Basophils # (auto) 0.06 K/uL (0-0.2); Basophils % (auto) 0.6 %; Eosinophils # (auto) 0.56 K/uL (0-0.5); Hematocrit (blood only) 40.6 % (37-47); Hemoglobin 13.7 g/dL (12.0-16.0); Immature Granulocytes # (auto) 0.02 K/uL (0.00-0.02); Immature Granulocytes % (auto) 0.2 %; Lymphocytes # (auto) 1.79 K/uL (1.2-3.4); Lymphocytes % (auto) 19.1 %; Mean Corpuscular Hgb Conc 33.7 g/dL (32-36); Mean Corpuscular Volume 95.5 fL (80-100); Mean Platelet Volume 11.1 fL (7.4-10.4); Monocytes # (auto) 0.78 K/uL (0.11-0.59); Monocytes % (auto) 8.3 %; Neutrophils # (auto) 6.15 K/uL (1.4-6.5); Neutrophils % (auto) 65.8 %; Platelet Count 221 K/uL (130-400); RDW Coefficient of Variation 13.3 % (11.5-14.5); RDW Standard Deviation 46.9 fL (36.4-46.3); Red Blood Count 4.25 M/uL (4.2-5.4); White Blood Count 9.36 K/uL (4.8-10.8)
--- NOTE | 2018-05-13 17:29 | Emergency Department Note ---
Entered by Cedrick Onofre acting as a scribe for Barry Armas MD History of Present Illness General Chief complaint: Chest Pain Stated complaint: CHEST PAIN, SOB, WHEEZING Time Seen by Provider: 05/13/18 16:38 Source: patient Limitations: no limitations History of Present Illness Provider complaint: Wheezing Onset (ago): hour(s) (Last night) Location: chest (SOB/Wheezing/CP) and left Pain Consistency: + other (worsening) Maximum Pain Intensity: 6 Quality: + other (wheezing) Associated symptoms: no fever/chills Treatments prior to arrival: none This history is provided from the patient's daughter at bedside secondary to dementia. The patient is a 77 year old female who presents to the Emergency Room with complaints of worsening wheezing. The daughter notes that the patient had a unilateral mastectomy performed on Wednesday, 4 days ago. She was kept in the hospital for two days, and discharged Wednesday, 2 days ago. The daughter notes that last night ( night) the patient began to wheeze, and the home- health nurse heard wheezing on her exam as well. She has no history of COPD or asthma. The daughter adds that she tried to get the patient to walk from the house to their barn today, but the patient needed to stop half way as she was short of breath. She is unsure if this would be baseline for the patient. The patient did have the surgical drain removed today and has made complaints of pain to the left chest. She is not on any blood thinner. There have not been any recorded fevers. The daughter did take the patient to her PCP today, who referred her to the ED for concern of PE. Home Medications Home Medications Medication Instructions Recorded Confirmed Type Triple Antibiotic 1 applic TOPICAL BID PRN 05/04/18 05/09/18 History chlorpromazine 10 mg PO QAM 05/04/18 05/09/18 History memantine 10 mg PO BID 05/04/18 05/04/18 History simvastatin 20 mg PO PM 05/04/18 05/04/18 History trazodone 150 mg PO HS 05/04/18 05/04/18 History venlafaxine 150 mg PO HS 05/04/18 05/04/18 History donepezil 10 mg PO DAILY 05/05/18 05/09/18 History cephalexin [Keflex] 500 mg PO TID #15 cap 05/11/18 Rx hydrocodone-acetaminophen [Kennedy] 1 - 2 tab PO Q6H #30 tab 05/11/18 Rx Allergies Allergy/AdvReac Type Severity Reaction Status Date / Time Sulfa (Sulfonamide Allergy Unknown Unknown Verified 05/13/18 19:51 Antibiotics) risedronate sodium AdvReac Mild reflux Verified 05/13/18 19:51 [From Actonel] Past Med/Surg History Medical History Dementia (Chronic) increases drastically with anesthesia especially the combination used during her first cataract surgery but not with the second cataract surgery Pulmonary emboli Anxiety and depression Breast cancer History of cervical cancer History of high cholesterol Surgical History S/P left mastectomy History of anesthesia reaction SLOW TO WAKE UP History of anesthesia reaction WITH FIRST CATARACT PROCEDURE - TOOK LONG TIME TO COME OUT OF ANESTHESIA, MADE DIMENTIA WORSE (pt was given 4mg of versed, 50mcg of fentanyl and 10mg of ketamine) WITH SECOND CATARACT - CAME OUT BETTER, DID NOT WORSEN DIMENTIA CATARACTS DONE [facility] EYE [facility] ( INFORMATION WAS TO BE FAXED ON APR 15, 2018 TO [facility] GENERAL SURGERY FROM EYE CLINIC) History of bilateral cataract extraction 2 PROCEDURES FOR History of colonoscopy History of hernia surgery History of laparoscopic cholecystectomy Family History Mother Brain tumor Social History marital status: / Feels Safe at Home: Yes Smoking Status: Former smoker Hx Alcohol Use: No Hx Substance Use: No Review of Systems See HPI for pertinent positives & negatives. and A total of 10 systems reviewed and were otherwise negative Physical Exam Vital Signs Vital Signs - 24 hr 05/13/18 15:49 05/13/18 17:15 05/13/18 18:32 Temperature 36.9 C Temperature Source Oral Sepsis Recent Fever Within 48 Hours No Sepsis New/Unexplained Change in Mental Status No Sepsis Action Taken by Nursing No Action Required Pulse Rate 116 H Pulse Rate [Finger] 89 87 Respiratory Rate 20 22 21 Blood Pressure 153/86 H Blood Pressure [Right Arm] 162/78 H 154/87 H Blood Pressure Mean 108 Blood Pressure Mean [Right Arm] 106 109 Pulse Oximetry 92 95 91 Oxygen Delivery Method Room Air Room Air Room Air 05/13/18 19:23 05/13/18 20:53 Temperature Temperature Source Sepsis Recent Fever Within 48 Hours Sepsis New/Unexplained Change in Mental Status Sepsis Action Taken by Nursing Pulse Rate Pulse Rate [Finger] 84 86 Respiratory Rate 18 20 Blood Pressure Blood Pressure [Right Arm] 169/74 H 172/82 H Blood Pressure Mean Blood Pressure Mean [Right Arm] 105 112 Pulse Oximetry 93 91 Oxygen Delivery Method Room Air Room Air GENERAL: Patient is in no acute distress. HEENT: No acute trauma, normocephalic atraumatic, mucous membranes moist, no nasal congestion, no scleral icterus. NECK: No stridor, no adenopathy, no meningismus, trachea is midline. CHEST: Left mastectomy site appears to be healing without infection. No erythema, no drainage. LUNGS: Wheezing bilaterally, worse on left. No respiratory distress. Dry cough noted. HEART: Without murmurs gallops or rubs, regular rate and rhythm. ABDOMEN: Soft, nontender, bowel sounds positive, no hernias, no peritonitis. EXTREMITIES: No cyanosis or edema, full range of motion of all the joints without pain or difficulty, no signs for acute trauma. NEUROLOGIC: Some confusion noted, consistent with dementia. Moving all extremities. Awake and alert. SKIN: No rash, no jaundice, no diaphoresis. Course 1640: Past medical records reviewed. The patient was evaluated in room A12B, and a complete history and physical examination were performed. 1907: I updated the patient on her findings. 1924: I explained the CT findings and results of PEs to the patient. 1928: I reviewed the patient's case with Dr. Meir MOLINA Hospitalist. She will evaluate the patient for further management. Administered Medications Ioversol (Optiray 320 125ml) 68 ml IV ONCE PRN PRN Reason: Interaction Checking Stop: 05/17/18 18:54 Last Admin: 05/13/18 18:56 Dose: 68 ml Documented by: [id number] Discontinued Medications Albuterol (Duoneb) 3 ml INH NOW STA Stop: 05/13/18 16:48 Last Admin: 05/13/18 17:20 Dose: 3 ml Documented by: [id number] Sodium Chloride (Nss) 500 mls @ 999 mls/hr IV .Q31M STA Stop: 05/13/18 17:17 Last Infusion: 05/13/18 18:22 Dose: 0 mls/hr Documented by: [id number] Admin: 05/13/18 17:21 Dose: 999 mls/hr Documented by: [id number] Medical Decision Making Differential Diagnosis Differential Diagnosis includes: Influenza, bronchitis, pneumonia, CHF, PE, atelectasis, anemia, electrolyte or metabolic abnormality, dehydration. Medical Records Attestation: I reviewed the patient's medical records. Home Medications Current Medication List: was personally reviewed by me Laboratory Data Attestation: I reviewed the patient's lab results. Result diagrams: 05/13/18 17:01 05/13/18 17:01 Lab Results 05/13/18 05/13/18 05/13/18 Range/Units 17:01 17:01 17:01 WBC 9.36 (4.8-10.8) K/uL RBC 4.25 (4.2-5.4) M/uL Hgb 13.7 (12.0-16.0) g/dL Hct 40.6 (37-47) % MCV 95.5 (80-100) fL MCH 32.2 (25-34) pg MCHC 33.7 (32-36) g/dL RDW Std Deviation 46.9 H (36.4-46.3) fL RDW Coeff of Jorge Alberto 13.3 (11.5-14.5) % Plt Count 221 (130-400) K/uL MPV 11.1 H (7.4-10.4) fL Immature Gran % (Auto) 0.2 % Neut % (Auto) 65.8 % Lymph % (Auto) 19.1 % Shannon % (Auto) 8.3 % Eos % (Auto) 6.0 % Baso % (Auto) 0.6 % Immature Gran # (Auto) 0.02 (0.00-0.02) K/uL Neut # (Auto) 6.15 (1.4-6.5) K/uL Lymph # (Auto) 1.79 (1.2-3.4) K/uL Shannon # (Auto) 0.78 H (0.11-0.59) K/uL Eos # (Auto) 0.56 H (0-0.5) K/uL Baso # (Auto) 0.06 (0-0.2) K/uL PT 10.3 (9.0-12.0) Seconds INR 1.0 (0.9-1.1) APTT 22.6 (21.0-31.0) Seconds PTT Ratio 0.8 Sodium 139 (136-145) mmol/L Potassium 3.7 (3.5-5.1) mmol/L Chloride 105 (98-107) mmol/L Carbon Dioxide 27 (21-32) mmol/L Anion Gap 7.0 (3-11) BUN 14 (7-18) mg/dl Creatinine 0.72 (0.6-1.2) mg/dl Est Cr Clr Drug Dosing 54.3 ml/min Est GFR ( Amer) 92.3 Est GFR (Non-Af Amer) 79.7 BUN/Creatinine Ratio 19.9 (10-20) Glucose 84 (70-99) mg/dl Calcium 8.8 (8.5-10.1) mg/dl Magnesium 2.3 (1.8-2.4) mg/dl Total Bilirubin 0.3 (0.2-1) mg/dl AST 20 (15-37) U/L ALT 19 (12-78) U/L Alkaline Phosphatase 82 (45-117) U/L Troponin I < 0.015 (0-0.045) ng/ml Total Protein 7.4 (6.4-8.2) gm/dl Albumin 3.5 (3.4-5.0) gm/dl Globulin 3.9 (2.5-4.0) gm/dl Albumin/Globulin Ratio 0.9 (0.9-2) Influenza Type A Ag (Neg) Influenza Type B Ag (Neg) 05/13/18 Range/Units 17:20 WBC (4.8-10.8) K/uL RBC (4.2-5.4) M/uL Hgb (12.0-16.0) g/dL Hct (37-47) % MCV (80-100) fL MCH (25-34) pg MCHC (32-36) g/dL RDW Std Deviation (36.4-46.3) fL RDW Coeff of Jorge Alberto (11.5-14.5) % Plt Count (130-400) K/uL MPV (7.4-10.4) fL Immature Gran % (Auto) % Neut % (Auto) % Lymph % (Auto) % Shannon % (Auto) % Eos % (Auto) % Baso % (Auto) % Immature Gran # (Auto) (0.00-0.02) K/uL Neut # (Auto) (1.4-6.5) K/uL Lymph # (Auto) (1.2-3.4) K/uL Shannon # (Auto) (0.11-0.59) K/uL Eos # (Auto) (0-0.5) K/uL Baso # (Auto) (0-0.2) K/uL PT (9.0-12.0) Seconds INR (0.9-1.1) APTT (21.0-31.0) Seconds PTT Ratio Sodium (136-145) mmol/L Potassium (3.5-5.1) mmol/L Chloride (98-107) mmol/L Carbon Dioxide (21-32) mmol/L Anion Gap (3-11) BUN (7-18) mg/dl Creatinine (0.6-1.2) mg/dl Est Cr Clr Drug Dosing ml/min Est GFR ( Amer) Est GFR (Non-Af Amer) BUN/Creatinine Ratio (10-20) Glucose (70-99) mg/dl Calcium (8.5-10.1) mg/dl Magnesium (1.8-2.4) mg/dl Total Bilirubin (0.2-1) mg/dl AST (15-37) U/L ALT (12-78) U/L Alkaline Phosphatase (45-117) U/L Troponin I (0-0.045) ng/ml Total Protein (6.4-8.2) gm/dl Albumin (3.4-5.0) gm/dl Globulin (2.5-4.0) gm/dl Albumin/Globulin Ratio (0.9-2) Influenza Type A Ag Neg for Influ A (Neg) Influenza Type B Ag Neg for Influ B (Neg) Imaging Data Attestation: I personally reviewed and interpreted this imaging study as follows: Radiologist's Impression: SINGLE VIEW CHEST CLINICAL HISTORY: Dyspnea. FINDINGS: An AP, portable, upright chest radiograph is compared to study dated 10/09/2016. The cardiomediastinal silhouette is unremarkable comment noting atherosclerotic calcification of the thoracic aorta. Chronic interstitial thickening is similar to previous. There is mild bibasilar atelectasis. No airspace consolidation or large pleural effusion is identified. No pneumothorax is seen. The bony thorax is grossly intact. Cholecystectomy clips are noted in the right upper quadrant. IMPRESSION: No active disease in the chest. Electronically signed by: Barry Umanzor M.D. 05/13/2018 5:[address] ANGIOGRAM OF THE CHEST CLINICAL HISTORY: Atypical chest pain. Shortness of breath. Possible pulmonary embolism. COMPARISON STUDY: No previous studies for comparison. TECHNIQUE: Following the IV administration of 68 mL of Optiray-320, CT angiogram of the thorax was performed from the thoracic inlet to the lung bases utilizing the pulmonary embolus protocol. Images are reviewed in the axial, sagittal, and coronal planes. IV contrast was administered without complication. MIP imaging was performed. A dose lowering technique was utilized adhering to the principles of ALARA. CT DOSE: 192.17 mGy.cm FINDINGS: There is a rim calcified 7 mm left lobe thyroid nodule. No pathologically enlarged axillary mediastinal or hilar lymph nodes were v isualized. There was no evidence of thoracic aortic dilatation. There is a right middle lobe pulmonary artery filling defect consistent with a small embolus. There are small left lower lobe pulmonary artery filling defects. No large main pulmonary artery emboli are delineated. There are dependent atelectatic changes. There is no lobar consolidation. There is respiratory motion artifact. There is pulmonary emphysema. No pleural effusions are visualized IMPRESSION: 1. Small bilateral pulmonary artery filling defects, indicative of acute bilateral pulmonary embolism Electronically signed by: Donal Ravi M.D. 05/13/2018 7:05 PM ECG Data Attestation: I personally reviewed and interpreted this ECG as follows: Indication: chest pain Rate (beats per minute): 84 Rhythm: normal sinus Findings: no ST depression, no ST elevation and no ectopy Blood Pressure Blood Pressure Findings: Elevated blood pressure Blood Pressure Disposition: further management by hospitalist [facility] Narrative There is no leukocytosis or worrisome anemia. No significant electrolyte abnormality or kidney failure. No coagulopathy. There was no hepatitis. EKG shows a sinus rhythm, no acute ischemia. Cardiac enzyme testing x1 is not consistent with acute cardiac injury. Chest film does not show pneumonia or CHF. Influenza testing was negative. Chest CT does show some bilateral pulmonary emboli. The patient received IV saline, she was given a DuoNeb for her wheezing. The patient presents with some wheezing. She did just have a left mastectomy. She does have risk factors for PE and does appear to have pulmonary emboli by workup. Given the recent surgery, given the bilateral pulmonary emboli, given the wheezing, I do think a hospital stay is warranted. I spoke to the patient and complex case manager. The on-call hospitalist was consulted. Impression & Plan Bilateral pulmonary embolism, Bilateral wheezing, Status post mastectomy Discharge Plan Visit Data Chief Complaint: Chest Pain Stated Complaint: CHEST PAIN, SOB, WHEEZING ED Provider: Barry Armas Discharge Problem: Bilateral pulmonary embolism, Bilateral wheezing, Status post mastectomy Patient Disposition: Being Evaluated by Hospitalist Forms Stand Alone Forms: Call Back Authorization, My [facility] Prescriptions Prescriptions: No Action chlorpromazine 10 mg Tablet 10 mg PO QAM RF: 0 trazodone 150 mg Tablet 150 mg PO HS RF: 0 memantine 10 mg Tablet 10 mg PO BID RF: 0 venlafaxine 150 mg Tablet Extended Release 24hr 150 mg PO HS RF: 0 simvastatin 20 mg Tablet 20 mg PO PM RF: 0 Triple Antibiotic 3.5mg-400 unit- 5,000 unit/gram Ointment 1 applic TOPICAL BID PRN (Reason: Itching) RF: 0 donepezil 10 mg Tablet 10 mg PO DAILY RF: 0 hydrocodone-acetaminophen [Kennedy] 5-325 mg tablet 1 - 2 tab PO Q6H Qty: 30 RF: 0 cephalexin [Keflex] 500 mg capsule 500 mg PO TID Qty: 15 RF: 0 Referrals Referrals: Cristina Diaz MD [Primary Care Provider] - Discharge Problem: Status post mastectomy Qualifiers: Laterality: bilateral Qualified Code(s): Z90.13 - Acquired absence of bilateral breasts and nipples The scribe's documentation has been prepared under my direction and personally reviewed by me in its entirety. I confirm that the note above accurately reflects all work, treatment, procedures, and medical decision making performed by me.
--- NOTE | 2018-05-13 17:36 | XRay Report ---
SINGLE VIEW CHEST CLINICAL HISTORY: Dyspnea. FINDINGS: An AP, portable, upright chest radiograph is compared to study dated 10/09/2016. The cardiom ediastinal silhouette is unremarkable comment noting atherosclerotic calcification of the thoracic ao rta. Chronic interstitial thickening is similar to previous. There is mild bibasilar atelectasis. No airspace consolidation or large pleural effusion is identified. No pneumothorax is seen. The bony tho rax is grossly intact. Cholecystectomy clips are noted in the right upper quadrant. IMPRESSION: No active disease in the chest. Electronically signed by: Barry Umanzor M.D. 05/13/2018 5:35 PM
[2018-05-13 17:46] LABS: Alanine Aminotransferase 19 U/L (12-78); Albumin Level 3.5 gm/dl (3.4-5.0); Aspartate Aminotransferase 20 U/L (15-37); BUN Creatinine Ratio 19.9 (10-20); Blood Urea Nitrogen 14 mg/dl (7-18); Calcium 8.8 mg/dl (8.5-10.1); Carbon Dioxide 27 mmol/L (21-32); Chloride 105 mmol/L (98-107); Creatinine Clr Calc Pharmacy 54.3 ml/min; Est GFR (African American) 92.3; Est GFR (Non-African American) 79.7; Glucose 84 mg/dl (70-99); Magnesium 2.3 mg/dl (1.8-2.4); Potassium 3.7 mmol/L (3.5-5.1); Sodium 139 mmol/L (136-145)
[2018-05-13 17:47] LABS: Partial Thromboplastin Ratio 0.8; Partial Thromboplastin Time 22.6 Seconds (21.0-31.0); Prothrombin Time 10.3 Seconds (9.0-12.0)
[2018-05-13 17:51] LABS: Albumin Globulin Ratio 0.9 (0.9-2); Alkaline Phosphatase 82 U/L (45-117); Bilirubin,Total 0.3 mg/dl (0.2-1); Globulin 3.9 gm/dl (2.5-4.0); Total Protein 7.4 gm/dl (6.4-8.2); Troponin I < 0.015 ng/ml (0-0.045)
[2018-05-13] MEDS ORDERED: OPTIRAY 320 125ml IV PRN (18:55)
--- NOTE | 2018-05-13 19:07 | CT Scan Report ---
CT ANGIOGRAM OF THE CHEST CLINICAL HISTORY: Atypical chest pain. Shortness of breath. Possible pulmonary embolism. COMPARISON STUDY: No previous studies for comparison. TECHNIQUE: Following the IV administration of 68 mL of Optiray-320, CT angiogram of the thorax was pe rformed from the thoracic inlet to the lung bases utilizing the pulmonary embolus protocol. Images ar e reviewed in the axial, sagittal, and coronal planes. IV contrast was administered without complicat ion. MIP imaging was performed. A dose lowering technique was utilized adhering to the principles of ALARA. CT DOSE: 192.17 mGy.cm FINDINGS: There is a rim calcified 7 mm left lobe thyroid nodule. No pathologically enlarged axillary mediastinal or hilar lymph nodes were visualized. There was no evidence of thoracic aortic dilatation. There is a right middle lobe pulmonary artery filling defect consistent with a small embolus. There a re small left lower lobe pulmonary artery filling defects. No large main pulmonary artery emboli are delineated. There are dependent atelectatic changes. There is no lobar consolidation. There is respiratory motion artifact. There is pulmonary emphysema. No pleural effusions are visualized IMPRESSION: 1. Small bilateral pulmonary artery filling defects, indicative of acute bilateral pulmonary embolism Electronically signed by: Donal Ravi M.D. 05/13/2018 7:05 PM
--- NOTE | 2018-05-13 21:10 | History & Physical Report ---
Date of Service May 13, 2018 Assessment & Plan (1) Pulmonary emboli: Patient with acute bilateral PEs diagnosed by CTA today. She is afebrile, hemodynamically stable, adequate oxygenation on room air with no respiratory distress. Asymptomatic, no CP/palpitations or SOB. Patient had left sided mastectomy with axillary node biopsy performed 4 days ago therefore is at high risk for bleeding at the surgical site. * Will start on heparin gtt with no bolus for anticoagulation for tonight * Plan to start NOAC in the morning * Consult General Surgery - appreciate assistance with this case (2) S/P left mastectomy: Surgery performed 05/09/[address] Porras. Well tolerated. Pain well controlled. Surgical site well approximated with no bleeding/drainage/erythema or hematoma * Continue Keflex 500mg po TID * Continue pain control with Treece PRN * Zofran PRN * General Surgery consult as above (3) History of high cholesterol: Chronic. Stable * Continue home Simvastatin 20mg po qHS (4) Anxiety and depression: Chronic. Stable * Continue home Venlafaxine 150mg po qHS (5) Dementia: Patient pleasant. * Continue Memantine * Continue Aricept * Delirium prevention strategies as patient is at increased risk for hospital delirium (6) Breast cancer: Followup with Oncology as scheduled F/E/N - Heplock. Monitor electroltyes and replete as needed. Heart healthy diet as tolerated Ppx - Heparin gtt for treatment of PE Code - Full per discussion with patient Dispo - Observation to medical floor History of Present Illness Chief Complaint: Bilateral PE Primary Care Provider: Cristina Diaz MD 77yo C female with history of DCIS of the left breast s/p left mastectomy with sentinel lymph node biopsy performed by Dr. Porras on 05/09/18. The surgery was well tolerated and uncomplicated. She was discharged home on 05/11/18 in stable condition. Patient had home nursing come on 05/12 for dressing change and noted wheezing in the bilateral lung graham. She was seen by Surgery today in followup and had her drain removed at 11:30. She was then referred to her PCP for assessment of the wheezing and subsequently sent to the ER. CTA performed in the ER with bilateral PEs. Patient with dementia. Majority of story obtained by daughter at bedside. Daughter reports that the patient was having audible wheezing as well as decreased exercise tolerance and WESLEY. Patient was also complaining of some chest discomfort in the anterior chest and back. She denies dizziness, syncope. No additional complaints at this time. ER Course: CTA performed, Albuterol, NSS x 500mL Allergies Allergy/AdvReac Type Severity Reaction Status Date / Time Sulfa (Sulfonamide Allergy Unknown Unknown Verified 05/13/18 19:51 Antibiotics) risedronate sodium AdvReac Mild reflux Verified 05/13/18 19:51 [From Actonel] Home Medications Home Medications Medication Instructions Recorded Confirmed Type Triple Antibiotic 1 applic TOPICAL BID PRN 05/04/18 05/09/18 History chlorpromazine 10 mg PO QAM 05/04/18 05/09/18 History memantine 10 mg PO BID 05/04/18 05/04/18 History simvastatin 20 mg PO PM 05/04/18 05/04/18 History trazodone 150 mg PO HS 05/04/18 05/04/18 History venlafaxine 150 mg PO HS 05/04/18 05/04/18 History donepezil 10 mg PO DAILY 05/05/18 05/09/18 History cephalexin [Keflex] 500 mg PO TID #15 cap 05/11/18 Rx hydrocodone-acetaminophen [Treece] 1 - 2 tab PO Q6H #30 tab 05/11/18 Rx Past Med/Surg History Medical History Dementia (Chronic) increases drastically with anesthesia especially the combination used during her first cataract surgery but not with the second cataract surgery Pulmonary emboli Anxiety and depression Breast cancer History of cervical cancer History of high cholesterol Surgical History S/P left mastectomy History of anesthesia reaction SLOW TO WAKE UP History of anesthesia reaction WITH FIRST CATARACT PROCEDURE - TOOK LONG TIME TO COME OUT OF ANESTHESIA, MADE DIMENTIA WORSE (pt was given 4mg of versed, 50mcg of fentanyl and 10mg of ketamine) WITH SECOND CATARACT - CAME OUT BETTER, DID NOT WORSEN DIMENTIA CATARACTS DONE [facility] ( INFORMATION WAS TO BE FAXED ON APR 15, 2018 TO [facility] GENERAL [facility]) History of bilateral cataract extraction 2 PROCEDURES FOR History of colonoscopy History of hernia surgery History of laparoscopic cholecystectomy Family History Mother Brain tumor Social History marital status: / Feels Safe at Home: Yes Smoking Status: Former smoker Hx Alcohol Use: No Hx Substance Use: No Review of Systems All systems reviewed & are unremarkable except as noted in HPI & below Difficult to obtain accurate ROS due to underlying dementia Physical Exam Vital Signs (Past 24 Hours): Last Vital Signs Temp 36.9 C 05/13/18 15:49 Pulse 84 05/13/18 19:23 Resp 18 05/13/18 19:23 BP 169/74 H 05/13/18 19:23 Pulse Ox 93 05/13/18 19:23 Physical Exam: General: patient resting comfortably, NAD, non-toxic in appearance Skin: warm, dry, no rashes or lesions. Left mastectomy side with steri strips in place, dressing over drain site. No bleeding, drainage or erythema. No hematoma. Axillary biopsy site with sutures in place, no bleeding/drainage/hematoma. HEENT: NC/AT, PERRL, EOMI, anicteric sclera, conjunctiva without injection, external ear normal to inspection and nontender, nares patent, moist mucus membranes, dentures in place, no oropharyngeal lesions, neck supple, trachea midline, no LAD, no thyromegaly, no JVD Heart: +S1/S2, regular, no m/r/g Lungs: equal air entry bilaterally, no rales/rhonchi/wheezes Abd: +BS, soft, NT/ND, no masses/organomegaly/ascites Ext: warm, 2+ pulses in UE/LE bilaterally, no clubbing/cyanosis or edema Neuro: nonfocal, speech intact, no facial droop, moving all extremities on command with equal strength 5/5 Results & Data Laboratory Results Lab Results 05/13/18 05/13/18 05/13/18 Range/Units 17:01 17:01 17:01 WBC 9.36 (4.8-10.8) K/uL RBC 4.25 (4.2-5.4) M/uL Hgb 13.7 (12.0-16.0) g/dL Hct 40.6 (37-47) % MCV 95.5 (80-100) fL MCH 32.2 (25-34) pg MCHC 33.7 (32-36) g/dL RDW Std Deviation 46.9 H (36.4-46.3) fL RDW Coeff of Jorge Alberto 13.3 (11.5-14.5) % Plt Count 221 (130-400) K/uL MPV 11.1 H (7.4-10.4) fL Immature Gran % (Auto) 0.2 % Neut % (Auto) 65.8 % Lymph % (Auto) 19.1 % [place] % (Auto) 8.3 % Eos % (Auto) 6.0 % Baso % (Auto) 0.6 % Immature Gran # (Auto) 0.02 (0.00-0.02) K/uL Neut # (Auto) 6.15 (1.4-6.5) K/uL Lymph # (Auto) 1.79 (1.2-3.4) K/uL [place] # (Auto) 0.78 H (0.11-0.59) K/uL Eos # (Auto) 0.56 H (0-0.5) K/uL Baso # (Auto) 0.06 (0-0.2) K/uL PT 10.3 (9.0-12.0) Seconds INR 1.0 (0.9-1.1) APTT 22.6 (21.0-31.0) Seconds PTT Ratio 0.8 Sodium 139 (136-145) mmol/L Potassium 3.7 (3.5-5.1) mmol/L Chloride 105 (98-107) mmol/L Carbon Dioxide 27 (21-32) mmol/L Anion Gap 7.0 (3-11) BUN 14 (7-18) mg/dl Creatinine 0.72 (0.6-1.2) mg/dl Est Cr Clr Drug Dosing 54.3 ml/min Est GFR ( Amer) 92.3 Est GFR (Non-Af Amer) 79.7 BUN/Creatinine Ratio 19.9 (10-20) Glucose 84 (70-99) mg/dl Calcium 8.8 (8.5-10.1) mg/dl Magnesium 2.3 (1.8-2.4) mg/dl Total Bilirubin 0.3 (0.2-1) mg/dl AST 20 (15-37) U/L ALT 19 (12-78) U/L Alkaline Phosphatase 82 (45-117) U/L Troponin I < 0.015 (0-0.045) ng/ml Total Protein 7.4 (6.4-8.2) gm/dl Albumin 3.5 (3.4-5.0) gm/dl Globulin 3.9 (2.5-4.0) gm/dl Albumin/Globulin Ratio 0.9 (0.9-2) Influenza Type A Ag (Neg) Influenza Type B Ag (Neg) 05/13/18 Range/Units 17:20 WBC (4.8-10.8) K/uL RBC (4.2-5.4) M/uL Hgb (12.0-16.0) g/dL Hct (37-47) % MCV (80-100) fL MCH (25-34) pg MCHC (32-36) g/dL RDW Std Deviation (36.4-46.3) fL RDW Coeff of Jorge Alberto (11.5-14.5) % Plt Count (130-400) K/uL MPV (7.4-10.4) fL Immature Gran % (Auto) % Neut % (Auto) % Lymph % (Auto) % [place] % (Auto) % Eos % (Auto) % Baso % (Auto) % Immature Gran # (Auto) (0.00-0.02) K/uL Neut # (Auto) (1.4-6.5) K/uL Lymph # (Auto) (1.2-3.4) K/uL [place] # (Auto) (0.11-0.59) K/uL Eos # (Auto) (0-0.5) K/uL Baso # (Auto) (0-0.2) K/uL PT (9.0-12.0) Seconds INR (0.9-1.1) APTT (21.0-31.0) Seconds PTT Ratio Sodium (136-145) mmol/L Potassium (3.5-5.1) mmol/L Chloride (98-107) mmol/L Carbon Dioxide (21-32) mmol/L Anion Gap (3-11) BUN (7-18) mg/dl Creatinine (0.6-1.2) mg/dl Est Cr Clr Drug Dosing ml/min Est GFR ( Amer) Est GFR (Non-Af Amer) BUN/Creatinine Ratio (10-20) Glucose (70-99) mg/dl Calcium (8.5-10.1) mg/dl Magnesium (1.8-2.4) mg/dl Total Bilirubin (0.2-1) mg/dl AST (15-37) U/L ALT (12-78) U/L Alkaline Phosphatase (45-117) U/L Troponin I (0-0.045) ng/ml Total Protein (6.4-8.2) gm/dl Albumin (3.4-5.0) gm/dl Globulin (2.5-4.0) gm/dl Albumin/Globulin Ratio (0.9-2) Influenza Type A Ag Neg for Influ A (Neg) Influenza Type B Ag Neg for Influ B (Neg) Diagnostic Findings SINGLE VIEW CHEST CLINICAL HISTORY: Dyspnea. FINDINGS: An AP, portable, upright chest radiograph is compared to study dated 10/09/2016. The cardiomediastinal silhouette is unremarkable comment noting atherosclerotic calcification of the thoracic aorta. Chronic interstitial thickening is similar to previous. There is mild bibasilar atelectasis. No airspace consolidation or large pleural effusion is identified. No pneumothorax is seen. The bony thorax is grossly intact. Cholecystectomy clips are noted in the right upper quadrant. IMPRESSION: No active disease in the chest. Electronically signed by: Barry Umanzor M.D. 05/13/2018 5:35 PM Dictated: 05/[id number]/[id number] Transcribed: 05/13/[address] ANGIOGRAM OF THE CHEST CLINICAL HISTORY: Atypical chest pain. Shortness of breath. Possible pulmonary embolism. COMPARISON STUDY: No previous studies for comparison. TECHNIQUE: Following the IV administration of 68 mL of Optiray-320, CT angiogram of the thorax was performed from the thoracic inlet to the lung bases utilizing the pulmonary embolus protocol. Images are reviewed in the axial, sagittal, and coronal planes. IV contrast was administered without complication. MIP imaging was performed. A dose lowering technique was utilized adhering to the principles of ALARA. CT DOSE: 192.17 mGy.cm FINDINGS: There is a rim calcified 7 mm left lobe thyroid nodule. No pathologically enlarged axillary mediastinal or hilar lymph nodes were visualized. There was no evidence of thoracic aortic dilatation. There is a right middle lobe pulmonary artery filling defect consistent with a small embolus. There are small left lower lobe pulmonary artery filling defects. No large main pulmonary artery emboli are delineated. There are dependent atelectatic changes. There is no lobar consolidation. There is respiratory motion artifact. There is pulmonary emphysema. No pleural effusions are visualized IMPRESSION: 1. Small bilateral pulmonary artery filling defects, indicative of acute bilateral pulmonary embolism Electronically signed by: Donal Ravi M.D. 05/13/2018 7:05 PM Dictated: 05/13/[id number] Transcribed: 05/13/181899 ECG Additional Comments: The study shows NSR at 84bpm, normal axis and intervals, no acute ischmic changes, no evidence of RV strain Code Status & VTE Plan Code Status FULL VTE Prophylaxis Plan VTE Prophylaxis will be ordered: Yes Critical Care Time Critical Care Time: No (1) Dementia Dementia type: unspecified type Dementia behavioral disturbance: without behavioral disturbance Qualified Code(s): F03.90 - Unspecified dementia without behavioral disturbance (2) Pulmonary emboli Pulmonary embolism type: unspecified Chronicity: acute Acute cor pulmonale presence: without acute cor pulmonale Qualified Code(s): I26.99 - Other pulmonary embolism without acute cor pulmonale (3) Breast cancer Breast location: unspecified site of breast Estrogen receptor status: negative Patient sex: female Laterality: left Qualified Code(s): C50.912 - Malignant neoplasm of unspecified site of left female breast; Z17.1 - Estrogen receptor negative status [ER-]
[2018-05-13] MEDS ORDERED: ACETAMINOPHEN 325 MG TAB PO PRN (22:01)
[2018-05-13] MEDS ORDERED: SIMVASTATIN 20 MG TAB PO SCH (22:01)
[2018-05-13] MEDS ORDERED: NEOMYCIN/POLYMYX/BACITR OINT 15 GM TUBE TOP PRN (22:01)
[2018-05-13] MEDS ORDERED: TRAZODONE HCL 50 MG TAB PO SCH (22:01)
[2018-05-13] MEDS ORDERED: HYDROCODONE/ACETAMOPHEN 5/325MG TAB PO PRN (22:01)
[2018-05-13] MEDS ORDERED: ONDANSETRON INJ 2 MG/ML 2 ML VIAL IV PRN (22:01)
[2018-05-13] MEDS ORDERED: Heparin IV Standard *NO* Bolus IV ONE (22:15)
[2018-05-13] MEDS ORDERED: HEPARIN STANDARD DEXTROSE 25,000 UNITS/500 ML IV SCH (22:30)
[2018-05-13] MEDS ORDERED: HEPARIN IV BOLUS 4,000 UNITS in SYRINGE 0 ML IV ONE (22:32)
[2018-05-13] MEDS: cephALEXin 500 MG CAP PO SCH (22:49)
[2018-05-13] MEDS: MEMANTINE HCL 10 MG TAB PO SCH (22:50)
[2018-05-14 05:19] LABS: Basophils # (auto) 0.09 K/uL (0-0.2); Basophils % (auto) 1.1 %; Eosinophils # (auto) 0.72 K/uL (0-0.5); Eosinophils % (auto) 8.7 %; Hematocrit (blood only) 37.2 % (37-47); Hemoglobin 12.5 g/dL (12.0-16.0); Immature Granulocytes # (auto) 0.03 K/uL (0.00-0.02); Immature Granulocytes % (auto) 0.4 %; Lymphocytes # (auto) 1.86 K/uL (1.2-3.4); Lymphocytes % (auto) 22.5 %; Mean Corpuscular Hgb Conc 33.6 g/dL (32-36); Mean Corpuscular Volume 96.1 fL (80-100); Mean Platelet Volume 10.8 fL (7.4-10.4); Monocytes # (auto) 0.68 K/uL (0.11-0.59); Monocytes % (auto) 8.2 %; Neutrophils # (auto) 4.88 K/uL (1.4-6.5); Neutrophils % (auto) 59.1 %; Platelet Count 195 K/uL (130-400); RDW Coefficient of Variation 13.2 % (11.5-14.5); Red Blood Count 3.87 M/uL (4.2-5.4); White Blood Count 8.26 K/uL (4.8-10.8)
[2018-05-14 05:30] LABS: Partial Thromboplastin Ratio 1.5; Partial Thromboplastin Time 41.3 Seconds (21.0-31.0)
[2018-05-14] MEDS ORDERED: HEPARIN IV BOLUS 2,000 UNITS in SYRINGE 0 ML IV ONE (06:15)
[2018-05-14 07:53] VITALS: BP 149/76; PULSE 77; TEMP 98.2; O2SAT 91
[2018-05-14] MEDS ORDERED: CHLORPROMAZINE HCL 10 MG TABLET PO SCH (09:00)
[2018-05-14] MEDS ORDERED: DONEPEZIL HCL 10 MG TAB PO SCH (09:00)
--- NOTE | 2018-05-14 09:38 | Family Medicine Progress Note ---
Date of Service May 14, 2018 Assessment & Plan (1) Bilateral pulmonary embolism: 77yo female with baseline dementia s/p left mastectomy and axillary lymph node dissection on May 09 admitted with bilateral PEs. Currently asymptomatic on RA. Pulmonary Emboli -Pt currently on Heparin drip -Consider switching to NOAC today . BMI 24, -General surgery consulted-following, appreciate recs. S/P left sded-Mastectomy -site clean, no drainage. -Continue Keflex scheduled, Zofran prn, Pain med Wilmar prn. -Followed by Gen Surg Hypercholesstrolemia -continue home simvastatin Dementia -continue home Memantine, Aricept. -will consider prn haldol as reports of pt agitation/delirium overnight Anxiety/Depression -Continue home venlafaxine 150mg Hx of Breast Cancer -Gen Surg following. DVT Prophylaxis: heparin drip Code: Full Subjective Pt is oriented to self only. states she feels fine and would like to go home. Denies SOB, chest pain, palpitations or leg pain currently. Also denies Headaches, N/V, diarrhea/constipation. Review of Systems All systems reviewed & are unremarkable except as noted in HPI & below Physical Exam Vital Signs (Past 24 Hours): Last Vital Signs Temp 36.8 C 05/14/18 07:00 Pulse 77 05/14/18 07:00 Resp 16 05/14/18 07:00 BP 149/76 H 05/14/18 07:00 Pulse Ox 91 05/14/18 07:00 General: Alert, orientedx1. No acute distress sitting in chair watching TV. HEENT: NC/AT, PERRLA, EOMI, oropharynx moist. Chest: Bandages clean in left breast area. CV: RRR, Normal s1, s2. No murmurs appreciated Resp: Breath sounds clear bilaterally, no increased effort of breathing. No crackles/rhonchi/rales. Abdomen: Soft, nontender, nondistended. No guarding. No organomegaly appreciated. Extremities: No edema in legs or arms noted. Results & Data Laboratory Results Laboratory Results - last 24 hr 05/13/18 05/13/18 05/13/18 17:01 17:01 17:01 WBC 9.36 RBC 4.25 Hgb 13.7 Hct 40.6 MCV 95.5 MCH 32.2 MCHC 33.7 RDW Std Deviation 46.9 H RDW Coeff of Jorge Alberto 13.3 Plt Count 221 MPV 11.1 H Immature Gran % (Auto) 0.2 Neut % (Auto) 65.8 Lymph % (Auto) 19.1 [place] % (Auto) 8.3 Eos % (Auto) 6.0 Baso % (Auto) 0.6 Immature Gran # (Auto) 0.02 Neut # (Auto) 6.15 Lymph # (Auto) 1.79 [place] # (Auto) 0.78 H Eos # (Auto) 0.56 H Baso # (Auto) 0.06 PT 10.3 INR 1.0 APTT 22.6 PTT Ratio 0.8 Sodium 139 Potassium 3.7 Chloride 105 Carbon Dioxide 27 Anion Gap 7.0 BUN 14 Creatinine 0.72 Est Cr Clr Drug Dosing 54.3 Est GFR ( Amer) 92.3 Est GFR (Non-Af Amer) 79.7 BUN/Creatinine Ratio 19.9 Glucose 84 Calcium 8.8 Magnesium 2.3 Total Bilirubin 0.3 AST 20 ALT 19 Alkaline Phosphatase 82 Troponin I < 0.015 Total Protein 7.4 Albumin 3.5 Globulin 3.9 Albumin/Globulin Ratio 0.9 Influenza Type A Ag Influenza Type B Ag 05/13/18 05/14/18 05/14/18 17:20 05:12 05:12 WBC 8.26 RBC 3.87 L Hgb 12.5 Hct 37.2 MCV 96.1 MCH 32.3 MCHC 33.6 RDW Std Deviation 46.0 RDW Coeff of Jorge Alberto 13.2 Plt Count 195 MPV 10.8 H Immature Gran % (Auto) 0.4 Neut % (Auto) 59.1 Lymph % (Auto) 22.5 [place] % (Auto) 8.2 Eos % (Auto) 8.7 Baso % (Auto) 1.1 Immature Gran # (Auto) 0.03 H Neut # (Auto) 4.88 Lymph # (Auto) 1.86 [place] # (Auto) 0.68 H Eos # (Auto) 0.72 H Baso # (Auto) 0.09 PT INR APTT 41.3 H PTT Ratio 1.5 Sodium Potassium Chloride Carbon Dioxide Anion Gap BUN Creatinine Est Cr Clr Drug Dosing Est GFR ( Amer) Est GFR (Non-Af Amer) BUN/Creatinine Ratio Glucose Calcium Magnesium Total Bilirubin AST ALT Alkaline Phosphatase Troponin I Total Protein Albumin Globulin Albumin/Globulin Ratio Influenza Type A Ag Neg for Influ A Influenza Type B Ag Neg for Influ B Medications Administered Home Medications Triple Antibiotic 1 applic TOPICAL BID PRN 05/04/18 [History Confirmed 05/09/18] chlorpromazine 10 mg PO QAM 05/04/18 [History Confirmed 05/09/18] memantine 10 mg PO BID 05/04/18 [History Confirmed 05/04/18] simvastatin 20 mg PO PM 05/04/18 [History Confirmed 05/04/18] trazodone 150 mg PO HS 05/04/18 [History Confirmed 05/04/18] venlafaxine 150 mg PO HS 05/04/18 [History Confirmed 05/04/18] donepezil 10 mg PO DAILY 05/05/18 [History Confirmed 05/09/18] cephalexin [Keflex] 500 mg PO TID #15 cap 05/11/18 [Rx] hydrocodone-acetaminophen [Wilmar] 1 - 2 tab PO Q6H #30 tab 05/11/18 [Rx] Active Medications Acetaminophen (Tylenol) 650 mg PO Q4H PRN PRN Reason: pain/fever Stop: 06/12/18 22:00 Hydrocodone Bitart/Acetaminophen (Wilmar 5/325) 1 tab PO Q6H PRN PRN Reason: pain Stop: 05/27/18 22:00 Cephalexin HCl (Keflex) 500 mg PO TID [facility] Stop: 05/23/18 22:00 Last Admin: 05/13/18 22:49 Dose: 500 mg Documented by: Chlorpromazine HCl (Thorazine) 10 mg PO QAM [facility] Stop: 06/13/18 08:59 Donepezil HCl (Aricept) 10 mg PO DAILY [facility] Stop: 06/13/18 08:59 Heparin Sodium/Dextrose (Heparin Sodium/Dextrose) 25,000 units in 500 mls @ 21 mls/hr IV .[id number] [facility]; Protocol Stop: 06/12/18 22:29 Last Titration: 05/14/18 06:59 Dose: 1,050 units/hr, 21 mls/hr Documented by: Memantine (Namenda) 10 mg PO BID [facility] Stop: 06/12/18 22:00 Last Admin: 05/13/18 22:50 Dose: 10 mg Documented by: Neomycin/Polymyxin/Bacitracin (Neosporin Oint) 1 appln TOP BID PRN PRN Reason: Itching Stop: 06/12/18 22:00 Ondansetron HCl (Zofran) 4 mg IV Q6H PRN PRN Reason: Nausea Stop: 06/12/18 22:00 Simvastatin (Zocor) 20 mg PO PM [facility] Stop: 06/12/18 22:00 Last Admin: 05/13/18 22:50 Dose: 20 mg Documented by: Trazodone HCl (Desyrel) 150 mg PO HS [facility] Stop: 06/12/18 22:00 Last Admin: 05/13/18 22:49 Dose: 150 mg Documented by: Resident Activity Tracking Resident Involvement: Resident Care Provided Care Provided: Adult Hospital Medicine
[2018-05-14] MEDS: cephALEXin 500 MG CAP PO SCH ×2 (09:57→13:46)
[2018-05-14] MEDS: MEMANTINE HCL 10 MG TAB PO SCH (09:57)
[2018-05-14 12:26] LABS: Partial Thromboplastin Ratio 2.2
[2018-05-14 12:34] LABS: Partial Thromboplastin Time 60.6 Seconds (21.0-31.0)
--- NOTE | 2018-05-14 12:50 | Surgery Progress Note ---
Date of Service May 14, 2018 Assessment & Plan (1) Bilateral pulmonary embolism: POD 5 no evidence of bleeding/hematoma. no sign of infection ok to begin anticoagulation has f/u with Dr. Porras scheduled near future. (2) Status post mastectomy: Subjective pt s/p left mastectomy with SLN bx by Dr. Porras on 04/11/18 began having some chest pain/wheezing etc... and was sent by PCP to ER. CT reveals b/l PE pt feeling better now. Physical Exam Vital Signs (Past 24 Hours): Last Vital Signs Temp 36.8 C 05/14/18 07:00 Pulse 77 05/14/18 07:00 Resp 16 05/14/18 07:00 BP 149/76 H 05/14/18 07:00 Pulse Ox 91 05/14/18 07:00 Physical Exam: alert. daughter at bedside. nad breast incision looks perfect. no hematoma/oozing. drain was removed yesterday (1) Status post mastectomy Laterality: bilateral Qualified Code(s): Z90.13 - Acquired absence of bilateral breasts and nipples
[2018-05-14] MEDS ORDERED: APIXABAN 5 MG TABLET PO ONE (13:15)
--- NOTE | 2018-05-14 13:33 | Discharge Summary ---
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 Porras on 05/09/18. The surgery was well tolerated and uncomplicated. She was discharged home on 05/11/18 in stable condition. Patient had home nursing come on 05/12 for dressing change and noted wheezing in the bilateral lung graham. She was seen by Surgery today in followup and had her drain removed at 11:30. She was then referred to her PCP for assessment of the wheezing and subsequently sent to the ER. CTA performed in the ER with bilateral PEs. Patient with dementia. Majority of story obtained by daughter at bedside. Daughter reports that the patient was having audible wheezing as well as decreased exercise tolerance and WESLEY. Patient was also complaining of some chest discomfort in the anterior chest and back. She denies dizziness, syncope. No additional complaints at this time. ER Course: CTA performed, Albuterol, NSS x 500mL Admission Exam Per Admitting Provider General: patient resting comfortably, NAD, non-toxic in appearance Skin: warm, dry, no rashes or lesions. Left mastectomy side with steri strips in place, dressing over drain site. No bleeding, drainage or erythema. No hematoma. Axillary biopsy site with sutures in place, no bleeding/drainage/hematoma. HEENT: NC/AT, PERRL, EOMI, anicteric sclera, conjunctiva without injection, external ear normal to inspection and nontender, nares patent, moist mucus membranes, dentures in place, no oropharyngeal lesions, neck supple, trachea midline, no LAD, no thyromegaly, no JVD Heart: +S1/S2, regular, no m/r/g Lungs: equal air entry bilaterally, no rales/rhonchi/wheezes Abd: +BS, soft, NT/ND, no masses/organomegaly/ascites Ext: warm, 2+ pulses in UE/LE bilaterally, no clubbing/cyanosis or edema Neuro: nonfocal, speech intact, no facial droop, moving all extremities on command with equal strength 5/5 Principal Diagnosis Provoked Pulmonary Emboli Discharge Exam General: Alert, orientedx1. No acute distress sitting in chair watching TV. HEENT: NC/AT, PERRLA, EOMI, oropharynx moist. Chest: Bandages clean in left breast area. CV: RRR, Normal s1, s2. No murmurs appreciated Resp: Breath sounds clear bilaterally, no increased effort of breathing. No crackles/rhonchi/rales. Abdomen: Soft, nontender, nondistended. No guarding. No organomegaly appreciated. Extremities: No edema in legs or arms noted. Discharge Data Allergies Allergy/AdvReac Type Severity Reaction Status Date / Time Sulfa (Sulfonamide Allergy Unknown Unknown Verified 05/13/18 19:51 Antibiotics) risedronate sodium AdvReac Mild reflux Verified 05/13/18 19:51 [From Actonel] Consultations 05/13/18 19:26 ED Decision to Admit Stat 05/13/18 22:01 Consult General Surgery Routine Ordered Studies 05/13/18 16:47 CT angio chest PE protocol Stat Hospital Course (1) Bilateral pulmonary embolism: 77yo female with baseline dementia s/p left mastectomy and axillary lymph node dissection on May 09 admitted with bilateral PEs. Currently asymptomatic on RA. Provoked Pulmonary Emboli -CTA showed "Small bilateral pulmonary artery filling defects, indicative of acute bilateral pulmonary embolism" -Likely due to being sedentary after surgery. Pt placed on Heparin drip before transitioning to Eliquis 10mg. Normal renal function upon discharge. General surgery consulted and in agreement of anticoagulant. Pt was discharged home on Eliquis 10mg to be taken for 3 months. S/P left sided-Mastectomy -site clean, no drainage. Keflex previously prescribed was continued and she was advised to continue Keflex for an additional 3 days. Pain med [place] prn given. -Followed by Gen Surg while hospitalized. Hypercholesstrolemia -continued home simvastatin Dementia -continued home Memantine, Aricept. Anxiety/Depression -Continue home venlafaxine 150mg Hx of Breast Cancer -Gen Surg following. DVT Prophylaxis: heparin drip Code: Full Total Time Total Time Spent Total Time Spent (In Minutes): 60 Discharge Plan Discharge Items Patient Disposition: Home - Self-Care Reason For Visit: PE Discharge Diagnosis: Provoked Pulmonary Embolism Discharge Goals: Decrease discomfort and Improve disease control Activity: Resume your previous activity Non-emergency contact: Primary Care Provider Call non-emergency contact if: you have any medication questions and your symptoms worsen Follow-up/Referrals: Cristina Diaz MD [Primary Care Provider] - Diet: Regular Addtl Provider Instructions: You were in the hospital for having clots in your lungs which was likely from you being not as mobile due to recent surgery. You are being discharged on a blood thinner which you will take for 3mths. Please continue taking your Keflex (cephalexin) previously prescribed as directed for THREE MORE DAYS. Please follow up with your family physician in one week Prescriptions: New Eliquis 5 mg (74 tabs) tablets,dose pack 5 mg PO BID Qty: 74 RF: 0 Continued chlorpromazine 10 mg Tablet 10 mg PO QAM RF: 0 trazodone 150 mg Tablet 150 mg PO HS RF: 0 memantine 10 mg Tablet 10 mg PO BID RF: 0 venlafaxine 150 mg Tablet Extended Release 24hr 150 mg PO HS RF: 0 simvastatin 20 mg Tablet 20 mg PO PM RF: 0 Triple Antibiotic 3.5mg-400 unit- 5,000 unit/gram Ointment 1 applic TOPICAL BID PRN (Reason: Itching) RF: 0 donepezil 10 mg Tablet 10 mg PO DAILY RF: 0 hydrocodone-acetaminophen [[place]] 5-325 mg tablet 1 - 2 tab PO Q6H Qty: 30 RF: 0 cephalexin [Keflex] 500 mg capsule 500 mg PO TID Qty: 15 RF: 0 Stand-Alone Forms: Call Back Authorization, [facility]/Other Patient Handouts: Apixaban Oral tablet, Embolism Pulmonary Discharge Orders: Discharge Order (Routine); Ordered 05/14/18 Ordered By: Renu Bob Admission Data Admit Date/Time: 05/13/18 20:49 Attending Provider: Renu Bob Admit Provider: No Worley Primary Care Provider: Cristina Diaz Other Providers: No Worley ; Wesley Ibrahim Service: Medical Other Interventions: Discharge Summary Assessment (RN) Last Done: 05/14/18 13:50 DC Date/Time DO NOT enter until pt leaves facility: 05/14/18 14:15 Supervising Physician Co-Signing Physician Notes Resident Physician Supervision Note: I independently interviewed and examined the patient and verified the esqueda history and physical, reviewed labs and image studies, discussed the case with the resident Dr. Ocampo and agree with the findings and care plan. Time spent in discharge 35 min
== END 2018-05-14 14:15 | disposition home or self-care (01) ==
LOC: 4E 15:46 → ED 15:46 → SUATTDRO 20:49 → 4E 21:49